=== PATIENT | male | born 1990 | race African-American/Black ===

== ENCOUNTER 2023-02-18 05:30 | Emergency (ER) | payer BC ==
[~2023-02-18] VITALS: Ht 195.6 cm; Wt 100.7 kg
[2023-02-18 05:39] VITALS: BP 132/85
[2023-02-18] MEDS ORDERED: [UNRECOGNIZED DRUG - OTHER] PO (06:31)
[2023-02-18] MEDS ORDERED: Amoxicillin500 MG PO (06:31)
[2023-02-18] MEDS ORDERED: IBUP800 PO (06:31)
== END 2023-02-18 06:38 | disposition home or self-care (01) ==
LOC: ER 05:30
DX: K02.9 Dental caries, unspecified (principal)
CPT/HCPCS: 64400; 96372-59; 99282-25; J1885